=== PATIENT | female | born 1940 | race Caucasian/White ===

== ENCOUNTER 2018-10-17 19:56 | Inpatient (IN) | payer BC, MEDICAID ==
[~2018-10-17] VITALS: Ht 170.2 cm; Wt 189.6 kg
[2018-10-17 20:10] VITALS: BP_SYST 98
--- NOTE | 2018-10-17 20:11 | NUR ---
Placed in room 6. Placed on youth nutritional monitor, blood pressure machine and pulse oximeter. To gown for exam. Side rails up.
--- NOTE | 2018-10-17 20:12 | NUR ---
BHASKAR Pacheco at bedside examining patient.
--- NOTE | 2018-10-17 20:20 | NUR ---
Pt from home BIB BLS C/O progressively worsening generalized weakness. In the ED pt's blood pressure is low, blood glucose level is within normal limits. Pt is on 3 lpm of O2 at home. Pt denies any chest pain, N/V/D or any other symptoms at this time. Will continue to monitor
--- NOTE | 2018-10-17 20:25 | NUR ---
Upon face to face with he states pt was admitted to [facility] ICU on October 06 with the diagnosis of CHF, Acute Respiratory Distress, and Shortness of Breath. Pt was then placed on Outpatient observation on October 11 with additional disgnosis of Afib with RVR, foot pain/swelling and weakness but states generalized weakness has not improved which is the reason for her visit to the ER today.
[2018-10-17] MEDS ORDERED: NS 500 ML IV ONE (20:30)
[2018-10-17] MEDS ORDERED: AMIODARONE HCL 150 MG in D5W 97 ML IV ONE (21:00)
--- NOTE | 2018-10-17 21:00 | NUR ---
Pt has been repositioned due to increased back pain from laying in bed. Pillow has been placed under pt's rt side. Pt reports relief, will continue to monitor
[2018-10-17] MEDS ORDERED: MULT-1164 PO (21:01)
[2018-10-17] MEDS ORDERED: CHOL100024 PO (21:01)
[2018-10-17] MEDS ORDERED: ACET-2634 PO (21:01)
[2018-10-17] MEDS ORDERED: FURO20TA4 PO (21:01)
[2018-10-17] MEDS ORDERED: OXYB5TAB11 PO (21:01)
[2018-10-17] MEDS ORDERED: BIOT10004 PO (21:01)
[2018-10-17] MEDS ORDERED: SIMV20TA6 PO (21:01)
[2018-10-17] MEDS ORDERED: VITA-285 PO (21:01)
[2018-10-17] MEDS ORDERED: GLIP10TA11 PO (21:01)
[2018-10-17] MEDS ORDERED: RIVA20TA PO (21:01)
[2018-10-17] MEDS ORDERED: OMEP20CA10 PO (21:01)
[2018-10-17] MEDS ORDERED: PARO-41 PO (21:01)
--- NOTE | 2018-10-17 21:05 | NUR ---
# 20 gauge angiocath placed to RT Upper Arm. Use of asceptic technique. Opsite placed over site. Blood return noted. Blood for lab drawn from site. Flushed with 10 cc of normal saline. No evidence of infiltration noted. Patient tolerated well.
[2018-10-17] MEDS ORDERED: AMIODARONE HCL 150 MG/3ML VIAL ONE ×2 (21:06→21:07)
--- NOTE | 2018-10-17 21:15 | NUR ---
Pt is in uncontrolled Afib. Dr. Pacheco has prescribed Amiodorone due to her BP. Pt is tolerating medication, will continue to monitor for a change in rhythm.
[2018-10-17 21:19] LABS: BASOPHILS # (AUTO) 0.1 K/uL (0.0-0.2); BASOPHILS % (AUTO) 0.8 % (0.0-2.0); EOSINOPHILS # (AUTO) 0.2 K/uL (0.0-0.4); EOSINOPHILS % (AUTO) 1.9 % (0.0-4.0); HEMATOCRIT 39.8 % (36-48); LYMPHOCYTES # (AUTO) 2.3 K/uL (1.0-5.5); LYMPHOCYTES % (AUTO) 18.5 % (20.5-51.5); MEAN CORPUSCULAR HEMOGLOBIN 33 pg (27-31); MEAN CORPUSCULAR HGB CONC 33 % (32-36); MEAN CORPUSCULAR VOLUME 100 fL (79.0-98.0); MONOCYTES # (AUTO) 1.4 K/uL (0.0-1.0); MONOCYTES % (AUTO) 11.7 % (1.7-9.3); NEUTROPHILS # (AUTO) 8.2 K/uL (1.8-7.7); NEUTROPHILS % (AUTO) 67.1 % (40.0-70.0); PLATELET COUNT (AUTO) 226 K/uL (130-430); RED BLOOD CELL COUNT(AUTO) 3.98 MIL/uL (4.2-6.2); RED CELL DISTRIBUTION WIDTH 14.4 % (9.0-15.0); WHITE BLOOD COUNT (AUTO) 12.2 K/uL (4.8-10.8)
--- NOTE | 2018-10-17 21:25 | NUR ---
Laboratory at bedside for blood draw
--- NOTE | 2018-10-17 21:30 | NUR ---
Radiology at bedside for chest xray
[2018-10-17] MEDS ORDERED: DILTIAZEM HCL 25 MG/5 ML VIAL IVP ONE (22:00)
[2018-10-17 22:03] LABS: ANION GAP 11 (5-15); CALCIUM 8.7 mg/dL (8.4-11.0); CHLORIDE 97 mmol/L (98-107); CREATININE 5.29 mg/dL (0.55-1.30); GLUCOSE 110 mg/dL (70-99); POTASSIUM 3.5 mmol/L (3.5-5.1); SODIUM SERUM 135 mmol/L (136-145); UREA NITROGEN, BLOOD 79 mg/dL (8-21)
[2018-10-17 22:08] LABS: ALANINE AMINOTRANSFERASE 22 U/L (12-78); ALBUMIN 2.5 g/dL (3.4-4.8); ASPARTATE AMINOTRANSFERASE 20 U/L (10-37); TOTAL BILIRUBIN 0.4 mg/dL (0.0-1.0)
[2018-10-17 22:19] LABS: BILIRUBIN,URINE 1+ (NEGATIVE); BLOOD, URINE 3+ (NEGATIVE); CLARITY/URINE HAZY (CLEAR); COLOR,URINE YELLOW (YELLOW); GLUCOSE,URINE NEGATIVE (NEGATIVE); KETONES,URINE TRACE (NEGATIVE); LEUKOCYTE ESTERASE ,URINE 1+ (NEGATIVE); NITRITE, URINE NEGATIVE (NEGATIVE); PROTEIN URINE 1+ (NEGATIVE); UROBILINOGEN,URINE 0.2 (0.2-1.0)
[2018-10-17] MEDS ORDERED: PIPERACILLIN/TAZO 3.375 GM in NS 50 ML IV ONE (22:30)
[2018-10-17] MEDS ORDERED: PIPERACILLIN/TAZOBACTAM 3.375 GM/VIAL (ZOSYN) IV ONE (22:45)
--- NOTE | 2018-10-17 22:48 | NUR ---
Dr. Pachceo updating family of pt condition and admission
--- NOTE | 2018-10-17 22:51 | NUR ---
ENVIRONMENTAL COMPLIANCE ENGINEER at bedside for ABG draw
[2018-10-17] MEDS ORDERED: ACETAMINOPHEN 500 MG TABLET PO ONE (23:00)
[2018-10-17 23:04] LABS: BACTERIA,URINE FEW /HPF (None Seen); RBC,URINE 80-100 /HPF (0-3); URIC ACID CRYSTALS,URINE 0-10 /HPF (None Seen); YEAST,URINE Many /HPF (None Seen)
[2018-10-17 23:05] LABS: MUCUS,URINE None Seen /LPF (None Seen)
--- NOTE | 2018-10-17 23:05 | NUR ---
Pt has been repositioned to relieve increasing back pain and also has been medicated with 1000mg of Tylenol. Will continue to monitor.
--- NOTE | 2018-10-17 23:07 | NUR ---
Pt is being placed on Bi-Pap per Dr. Pacheco due to her low O2 saturation. O2 sat has been 89-91% on 5 liters of O2. Will continue to monitor
--- NOTE | 2018-10-17 23:17 | NUR ---
Dr. Larsen at bedside examining patient
--- NOTE | 2018-10-17 23:23 | NUR ---
Dr. Larsen is speaking with family
[2018-10-17] MEDS ORDERED: KETAMINE 30 MG/3 ML SYRINGE 30 MG in NS 100 ML IV ONE (23:30)
[2018-10-17] MEDS ORDERED: D5W 1,000 ML IV PRN (23:41)
[2018-10-17] MEDS ORDERED: KETAMINE 30 MG/3 ML SYRINGE ONE (23:43)
[2018-10-17] MEDS ORDERED: GLUCOSE 15 GM GEL (in 37.5 GM TUBE) PO PRN (23:45)
[2018-10-17] MEDS ORDERED: NACL 0.9% 2,000 ML IV ONE (23:45)
[2018-10-17] MEDS ORDERED: HYDROmorphone 1 MG INJ. 1 MG/ML AMPUL IVP PRN (23:45)
[2018-10-17] MEDS ORDERED: IPRATROPIUM BROM 0.5 MG/2.5 ML VIAL.NEB (ATROVENT) INH PRN (23:45)
[2018-10-17] MEDS ORDERED: SUCCINYLCHOLINE CHLORIDE 20 MG/ML(QUELICIN) IVP ONE (23:45)
[2018-10-17] MEDS ORDERED: KETOROLAC TROMETHAMINE 15 MG VIAL IVP PRN (23:45)
[2018-10-17] MEDS ORDERED: DEXTROSE 50% JECT 50 ML DISP.SYRIN IVP PRN (23:45)
[2018-10-17] MEDS ORDERED: *HEPARIN PER PHARMACY XX ONE (23:45)
[2018-10-17] MEDS ORDERED: ONDANSETRON HCL 4 MG/2 ML VIAL IVP PRN (23:45)
[2018-10-17] MEDS ORDERED: LORazepam 2 MG/ML VIAL IVP PRN (23:45)
[2018-10-17] MEDS ORDERED: LORazepam 2 MG/ML VIAL IM PRN (23:45)
[2018-10-17] MEDS ORDERED: ETOMIDATE 20 MG/ 10 ML VIAL (AMIDATE) IVP ONE (23:45)
[2018-10-17] MEDS ORDERED: ALBUTEROL SULFATE 0.083% 2.5 MG/3 ML VIAL.NEB INH PRN (23:45)
[2018-10-17] MEDS ORDERED: NOREPINEPHRINE BITARTRATE 4 MG in NS 246 ML IV ONE (23:45)
[2018-10-18] VITALS (35 sets, daily range): BP systolic 77–136
[2018-10-18] MEDS ORDERED: *HEPARIN PER PHARMACY XX PRN
[2018-10-18] MEDS ORDERED: HEPARIN SODIUM,PORCINE 2000 UNITS/0.4 ML BOLUS IVP PRN (00:15)
--- NOTE | 2018-10-18 00:28 | NUR ---
Patient not known to be of DNR status. Patient medicated with 20 mg of Etomidate and 100mg Succinylcholine for sedation prior to placement of ET tube. Respiratory therapy at bedside prior to placement. Size 7.5 ET tube placed by Dr. Pacheco. Cuff inflated with 10 cc air. Auscultation of breath sounds over bilateral chest wall. ET tube secured with tube wilson. O2 sats 100% pulse ox. PCXR ordered to check tube placement.
[2018-10-18] MEDS ORDERED: HEPARIN SODIUM,PORCINE 5000 UNITS/ML VIAL IV ONE (00:30)
--- NOTE | 2018-10-18 00:31 | NUR ---
Xray at bedside
--- NOTE | 2018-10-18 00:40 | NUR ---
Xray confirmed placement of ET Tube
[2018-10-18] MEDS ORDERED: MIDAZOLAM HCL 5 MG/5 ML VIAL IVP ONE (00:45)
[2018-10-18] MEDS ORDERED: ETOMIDATE 20 MG/ 10 ML VIAL (AMIDATE) IVP ONE (00:45)
[2018-10-18] MEDS ORDERED: LINEZOLID 300 ML IV ONE ×2 (00:45→10:45)
[2018-10-18] MEDS ORDERED: SUCCINYLCHOLINE CHLORIDE 20 MG/ML(QUELICIN) IVP ONE (00:45)
--- NOTE | 2018-10-18 00:53 | NUR ---
Dr. Pacheco at bedside examining patient. Propofol drip running and Versed ordered to be given
[2018-10-18] MEDS ORDERED: PROPOFOL DRIP 100 ML IV ONE (00:57)
[2018-10-18] MEDS ORDERED: VANCOMYCIN HCL 1,750 MG in NS 500 ML IV ONE (01:00)
[2018-10-18] MEDS ORDERED: MIDAZOLAM HCL 5 MG/5 ML VIAL ONE ×2 (01:04→01:34)
[2018-10-18] MEDS: PROPOFOL DRIP 100 ML IV PRN ×6 (01:07→22:01)
--- NOTE | 2018-10-18 01:10 | NUR ---
Dr. Pacheco at bedside for central line placement
--- NOTE | 2018-10-18 01:11 | NUR ---
Propofol drip increased to 10mcg/kg/min due to increased agitation during proceedure.
--- NOTE | 2018-10-18 01:16 | NUR ---
Propofol drip increased to 15mcg/kg/min due to increased movement
--- NOTE | 2018-10-18 01:30 | NUR ---
Additional 3mg of Midazolam has been ordered by Dr. Pacheco via verbal order. Administered at 0130 due to increased movement
--- NOTE | 2018-10-18 01:34 | NUR ---
Central line placed by Dr. Pacheco
--- NOTE | 2018-10-18 01:39 | NUR ---
Propofol drip increased to 20mcg/kg/min per protocol due to increased movement
--- NOTE | 2018-10-18 02:03 | NUR ---
Patient will be admitted to care of Dr. Larsen. Admitted to ICU unit. Will go to room 8. Belongings list completed. Summary report printed. Report will be given at bedside.
--- NOTE | 2018-10-18 02:14 | NUR ---
Propofol increased to 25mcg/kg/min due to increased movement.
--- NOTE | 2018-10-18 02:27 | NUR ---
Propofol increased to 30mcg/kg/min due to increased movement
--- NOTE | 2018-10-18 02:35 | NUR ---
ADMISSION NOTE Received patient from ER via gurnatasha, received report from JEFF BEE. Patient admitted with diagnosis of SEPSIS, UTI, PNA, ACUTE RENAL FAILURE, ACUTE RESPIRATORY FAILURE. PT RECEIVED IN BED WITH EYES CLOSED, SEDATED. NO S/S OF ACUTE DISTRESS NOTED. PT INTUBATED, VENT SETTINGS: AC 12, TV 600, FIO2 60%, PEEP 5. A-FIB ON MONITOR. RT IJ TLC TO SL, R HAND 22G INFUSING ABX, MALINDA 20G INFUSING DIPRIVAN DRIP @ 30 MCG/KG/MIN. HOB ELEVATED, BED IN LOWEST POSITION, CALL LIGHT IN REACH. WILL CONTINUE TO MONITOR PT.
--- NOTE | 2018-10-18 02:45 | NUR ---
Transfer to ICU via ACLS protocol. Licensed nurse present. IV present no signs or symptoms of infiltration.
--- NOTE | 2018-10-18 03:05 | NUR ---
called Dr. Roy's exchange for orders. Spoke to Valentina.
[2018-10-18] MEDS: IPRATROPIUM BROM 0.5 MG/2.5 ML VIAL.NEB (ATROVENT) INH SCH ×5 (03:20→19:00)
[2018-10-18] MEDS: ALBUTEROL SULFATE 0.083% 2.5 MG/3 ML VIAL.NEB INH SCH ×3 (03:20→07:11)
--- NOTE | 2018-10-18 03:20 | NUR ---
VENT CHANGES SETTINGS CHANGED TO AC 16 AND TV [address] QUISPE. RT AT BEDSIDE TO MAKE CHANGES. WILL CONTINUE TO MONITOR PT.
[2018-10-18] MEDS ORDERED: NOREPINEPHRINE 4 MG/4 ML VIAL IV ONE (03:22)
[2018-10-18] MEDS: D5NS 1,000 ML IV SCH ×2 (03:24→09:02)
[2018-10-18] MEDS ORDERED: FUROSEMIDE 40 MG/4 ML VIAL ONE (03:40)
[2018-10-18] MEDS: HEPARIN 25,000 UNITS in 250 ML PREMIX IV PRN (03:40)
[2018-10-18] MEDS ORDERED: FUROSEMIDE 20 MG/2 ML VIAL ONE (03:40)
[2018-10-18] MEDS ORDERED: VANCOMYCIN HCL 1000 MG/VIAL IV ONE (03:43)
[2018-10-18] MEDS ORDERED: PIPERACILLIN/TAZOBACTAM 3.375 GM/VIAL (ZOSYN) IV ONE (03:43)
[2018-10-18] MEDS: FUROSEMIDE 100 MG in D5W 90 ML IV SCH (03:46)
--- NOTE | 2018-10-18 04:30 | NUR ---
OGT OGT PLACED THIS TIME. STOMACH AUSCULTATED AND GURGLING NOISE HEARD FOR CONFIRMATION OF PLACEMENT. CLAMPED AT THIS TIME. PT TOLERATED PROCEDURE WELL.
--- NOTE | 2018-10-18 04:30 | NUR ---
CARDENAS CATH: # 16 FR Cardenas catheter with 10 cc bulb inserted with use of sterile technique. Bulb inflated with 10 cc sterile water. Immediate return of 30 cc YELLOW urine noted. Bedside drainage bag placed below level of bladder. Pt tolerated procedure WELL.
[2018-10-18] MEDS: PIPERACILLIN/TAZO 3.375/DEX-IS 50 ML IV SCH ×4 (05:39→17:42)
[2018-10-18] MEDS: INSULIN REGULAR, HUMAN 100 UNITS/ML, 10 ML VIAL (humuLIN R) SUBCUT PRN ×3 (05:41→18:00)
--- NOTE | 2018-10-18 05:50 | NUR ---
called Dr. Ellis's exchange for morning consult. Spoke to Bertin, chief airline radio operator 22.
--- NOTE | 2018-10-18 05:56 | NUR ---
called Dr. Thompson's and Dr. Alvarez's exchange for morning consult. Spoke to Valentina.
[2018-10-18] MEDS ORDERED: DILTIAZEM HCL 125 MG/25 ML VIAL IV ONE ×2 (06:06)
[2018-10-18] MEDS: DILTIAZEM HCL 125 MG in D5W 100 ML IV PRN ×2 (06:07→06:09)
[2018-10-18 06:08] LABS: BASOPHILS # (AUTO) 0.1 K/uL (0.0-0.2); BASOPHILS % (AUTO) 0.9 % (0.0-2.0); EOSINOPHILS # (AUTO) 0.3 K/uL (0.0-0.4); EOSINOPHILS % (AUTO) 2.2 % (0.0-4.0); HEMATOCRIT 35.6 % (36-48); HEMOGLOBIN 11.5 g/dL (12.0-16.0); LYMPHOCYTES # (AUTO) 1.8 K/uL (1.0-5.5); LYMPHOCYTES % (AUTO) 13.5 % (20.5-51.5); MEAN CORPUSCULAR HEMOGLOBIN 32 pg (27-31); MEAN CORPUSCULAR HGB CONC 32 % (32-36); MEAN CORPUSCULAR VOLUME 100 fL (79.0-98.0); MONOCYTES # (AUTO) 1.3 K/uL (0.0-1.0); MONOCYTES % (AUTO) 9.4 % (1.7-9.3); NEUTROPHILS # (AUTO) 9.9 K/uL (1.8-7.7); PLATELET COUNT (AUTO) 233 K/uL (130-430); RED BLOOD CELL COUNT(AUTO) 3.57 MIL/uL (4.2-6.2); RED CELL DISTRIBUTION WIDTH 14.2 % (9.0-15.0); WHITE BLOOD COUNT (AUTO) 13.4 K/uL (4.8-10.8)
--- NOTE | 2018-10-18 06:20 | NUR ---
Called Dr. Roy's exchange. Spoke to Valentina.
[2018-10-18 06:41] LABS: CHLORIDE 100 mmol/L (98-107); GLUCOSE 232 mg/dL (70-99); POTASSIUM 3.6 mmol/L (3.5-5.1); SODIUM SERUM 139 mmol/L (136-145)
--- NOTE | 2018-10-18 07:10 | NUR ---
RT NOTES Vent settings to AC 14 40% per Dr Roy's order. No adverse reactions noted. Will monitor pt.
[2018-10-18] MEDS ORDERED: AZITHROMYCIN 500 MG in NS 250 ML IV ONE (07:15)
--- NOTE | 2018-10-18 07:15 | NUR ---
Opening Note Received bedside report from Neena BEE for continuation of care. Received patient resting in bed, no signs or symptoms of acute distress noted. Bed locked in lowest position and bed alarm on.
[2018-10-18 07:20] LABS: ANION GAP 17 (5-15); CALCIUM 7.9 mg/dL (8.4-11.0); CREATININE 4.92 mg/dL (0.55-1.30); UREA NITROGEN, BLOOD 75 mg/dL (8-21)
--- NOTE | 2018-10-18 07:30 | NUR ---
ENDORSEMENT BEDSIDE REPORT GIVEN TO SONIA BEE USING SBAR APPROACH.
[2018-10-18 07:43] LABS: ALANINE AMINOTRANSFERASE 22 U/L (12-78); ASPARTATE AMINOTRANSFERASE 21 U/L (10-37); TOTAL BILIRUBIN 0.5 mg/dL (0.0-1.0)
[2018-10-18 07:44] LABS: ALBUMIN 2.2 g/dL (3.4-4.8)
[2018-10-18 07:45] LABS: PHOSPHORUS 5.3 mg/dL (2.7-4.5)
--- NOTE | 2018-10-18 08:05 | NUR ---
Dr. Young at bedside examining patient. No new orders received.
--- NOTE | 2018-10-18 08:08 | NUR ---
2D ECHO being performed at bedside. No signs or symptoms of acute distress noted. Patient tolerated well with minimal discomfort.
--- NOTE | 2018-10-18 08:52 | NUR ---
US Abdomen being performed at bedside. No signs or symptoms of acute distress noted. Patient tolerated well with minimal discomfort.
[2018-10-18] MEDS: PANTOPRAZOLE SODIUM 40 MG/VIAL (PROTONIX) IVP SCH ×2 (08:59→20:35)
[2018-10-18] MEDS: ASPIRIN 325 MG TABLET PO SCH (08:59)
--- NOTE | 2018-10-18 10:15 | NUR ---
Nutrition Update Ry Scale 12 noted. Pt admitted for sepsis, UTI. Diet: NPO BMI: 65.5 kg/m2 RD to follow per nutrition care standards.
--- NOTE | 2018-10-18 10:29 | NUR ---
Dr. Larsen in to see patient. New orders received.
--- NOTE | 2018-10-18 10:43 | NUR ---
Dr. Alvarez in to see patient. New orders received.
--- NOTE | 2018-10-18 11:15 | NUR ---
US Chest being performed at bedside. No signs or symptoms of acute distress noted.
[2018-10-18] MEDS: AMIODARONE HCL 900 MG in D5W 482 ML IV SCH (12:00)
--- NOTE | 2018-10-18 12:00 | NUR ---
Dr. Escalera at bedside examining patient and updating patient/family on plan of care. No new orders.
[2018-10-18] MEDS: FLUCONAZOLE 200 mg/ NS 100 ML IV SCH (12:51)
[2018-10-18] MEDS: LevALBUTEROL HCL 1.25 MG/0.5 ML *CONC.* VIAL.NEB (XOPENEX CONC.) INH SCH ×2 (13:26→19:00)
[2018-10-18] MEDS: LORazepam 2 MG/ML VIAL IVP PRN (14:39)
[2018-10-18] MEDS: HYDROCORTISONE SOD SUCC 100 MG/2 ML VIAL IVP SCH ×2 (15:49→21:59)
[2018-10-18] MEDS: NOREPINEPHRINE BITARTRATE 4 MG in D5W 246 ML IV PRN (17:44)
--- NOTE | 2018-10-18 18:36 | NUR ---
Patient transferred to [facility]. No signs or symptoms of acute distress noted.
--- NOTE | 2018-10-18 19:18 | NUR ---
Endorsement Endorsed bedside report to Lyndsay BEE using SBAR approach for continuation of care.
--- NOTE | 2018-10-18 19:30 | NUR ---
PM SHIFT ASSESSMENT Pt is sedated, on Diprivan drip. O2 via vent, pt tolerating current vent settings. OG tube noted, clamped. Lobo catheter in place and draining to gravity. Multiple IV's infusing, no signs of infiltration noted. Skin warm and dry. at bedside. Safety precautions in bed, call light within reach. Educated on how to use call light for assistance. Will continue to monitor.
[2018-10-18] MEDS: LINEZOLID 300 ML IV SCH (20:34)
[2018-10-19] VITALS (36 sets, daily range): BP systolic 101–164
[2018-10-19] MEDS: PIPERACILLIN/TAZO 3.375/DEX-IS 50 ML IV SCH ×5 (00:27→23:39)
[2018-10-19] MEDS: MORPHINE 2 MG/ML INJ. SYRINGE IVP PRN ×4 (00:28→17:20)
[2018-10-19] MEDS: INSULIN REGULAR, HUMAN 100 UNITS/ML, 10 ML VIAL (humuLIN R) SUBCUT PRN ×5 (00:34→23:57)
[2018-10-19] MEDS: PROPOFOL DRIP 100 ML IV PRN ×4 (00:38→12:20)
[2018-10-19] MEDS: HEPARIN 25,000 UNITS in 250 ML PREMIX IV PRN ×2 (02:53→23:41)
[2018-10-19] MEDS ORDERED: PROPOFOL DRIP 200 ML IV ONE (05:07)
[2018-10-19 05:16] LABS: HEMATOCRIT 37.3 % (36-48); HEMOGLOBIN 12.1 g/dL (12.0-16.0); MEAN CORPUSCULAR HEMOGLOBIN 32 pg (27-31); MEAN CORPUSCULAR HGB CONC 33 % (32-36); MEAN CORPUSCULAR VOLUME 100 fL (79.0-98.0); PLATELET COUNT (AUTO) 233 K/uL (130-430); RED BLOOD CELL COUNT(AUTO) 3.74 MIL/uL (4.2-6.2); RED CELL DISTRIBUTION WIDTH 14.3 % (9.0-15.0); WHITE BLOOD COUNT (AUTO) 10.8 K/uL (4.8-10.8)
[2018-10-19] MEDS: HYDROCORTISONE SOD SUCC 100 MG/2 ML VIAL IVP SCH ×3 (05:20→21:14)
[2018-10-19 05:40] LABS: ATYPICAL LYMPHOCYTES % 0 % (0-0); BAND % (MANUAL) 5 % (0-6); BASOPHILS % (MANUAL) 0 % (0-2); EOSINOPHILS % (MANUAL) 0 % (0-7); LYMPHOCYTES % (MANUAL) 8 % (20-46); METAMYELOCYTES % 1 % (0-0); MONOCYTES % (MANUAL) 9 % (0-11); MYELOCYTES % 1 % (0-0)
[2018-10-19 05:44] LABS: ALANINE AMINOTRANSFERASE 21 U/L (12-78); ALBUMIN 2.2 g/dL (3.4-4.8); ANION GAP 12 (5-15); ASPARTATE AMINOTRANSFERASE 23 U/L (10-37); CALCIUM 8.2 mg/dL (8.4-11.0); CHLORIDE 99 mmol/L (98-107); CREATININE 3.77 mg/dL (0.55-1.30); GLUCOSE 334 mg/dL (70-99); POTASSIUM 3.8 mmol/L (3.5-5.1); SODIUM SERUM 137 mmol/L (136-145); TOTAL BILIRUBIN 0.4 mg/dL (0.0-1.0); UREA NITROGEN, BLOOD 65 mg/dL (8-21)
--- NOTE | 2018-10-19 06:00 | NUR ---
Witnessed diprivan drip decreased to 20 mcg/kg/min
[2018-10-19] MEDS: HEPARIN SODIUM,PORCINE 3000 UNITS/0.6 ML BOLUS IVP PRN ×2 (06:53→23:42)
--- NOTE | 2018-10-19 06:55 | NUR ---
WITNESSED HEPARIN DRIP INCREASED TO 1300 UNITS/HR
--- NOTE | 2018-10-19 07:28 | NUR ---
ENDORSEMENT Pt care endorsed to CRISTAL Mott at bedside using nursing SBAR.
[2018-10-19] MEDS: IPRATROPIUM BROM 0.5 MG/2.5 ML VIAL.NEB (ATROVENT) INH SCH ×3 (07:30→19:37)
[2018-10-19] MEDS: LevALBUTEROL HCL 1.25 MG/0.5 ML *CONC.* VIAL.NEB (XOPENEX CONC.) INH SCH ×3 (07:30→19:36)
--- NOTE | 2018-10-19 07:50 | NUR ---
AM ASSESSMENT. PT ON PROPOFOL DRIP AT 20 MCG/KG/MIN, LEVOPHED DRIP AT 2 MCG/MIN, LASIX DRIP AT 2 MG/HR, HEPARIN DRIP AT 1300 UNIT/HR, AMIODARONE DRIP AT 0.5 MG/MIN. TIRE ADJUSTER ATRIAL FIB, HEART RATE 116 TO 120'S. MECHANICALLY INTUBATED, ORAL CARE DONE.
[2018-10-19] MEDS: NOREPINEPHRINE BITARTRATE 4 MG in D5W 246 ML IV PRN (08:14)
[2018-10-19] MEDS: ASPIRIN 325 MG TABLET PO SCH (09:00)
[2018-10-19] MEDS: PANTOPRAZOLE SODIUM 40 MG/VIAL (PROTONIX) IVP SCH ×2 (09:37→21:14)
[2018-10-19] MEDS: LINEZOLID 300 ML IV SCH ×2 (09:37→21:14)
--- NOTE | 2018-10-19 10:35 | NUR ---
. CALLED AND SPOKE TO DR GARCIA, PT;S HEART RATE IN THW 110'S TO 120'S, TO CONTINUE AMIODARONE DRIP AT 0.5 MG/MIN.
[2018-10-19] MEDS: AMIODARONE HCL 900 MG in D5W 482 ML IV SCH (10:37)
[2018-10-19] MEDS ORDERED: COMMUNICATION ORDER XX ONE (10:45)
--- NOTE | 2018-10-19 11:15 | NUR ---
RT NOTES FIO2 TO 35% PER TITRATION ORDER. NO ADVERSE REACTIONS NOTED. WILL MONITOR PT.
[2018-10-19] MEDS: FLUCONAZOLE 200 mg/ NS 100 ML IV SCH (11:22)
[2018-10-19] MEDS: LORazepam 2 MG/ML VIAL IVP PRN (14:07)
--- NOTE | 2018-10-19 14:40 | NUR ---
Dietitian Recommendations * Consider EN support within 24-48 hours or advance diet if/when medically appropriate * Consider Pivot 1.5 at 65 ml/hr (goal rate), Free Water Flush: 150 ml Q4h via OGT Provides: 2340 kcal/day, 147 gm protein/day, and 2084 ml free water/day Meets: 106% of estimated caloric needs and 104% of lower end of estimated protein needs LP, RD Please refer to Nutrition Assessment for details.
--- NOTE | 2018-10-19 15:20 | NUR ---
RT NOTES Vent settings to SIMV [address] order. Pt. appears to tolerate settings well, placed on CO2 monitor. Will cont to monitor pt. Addendum: 10/19/18 at 1551 by Jerica Mathias RT Amended: Links added.
--- NOTE | 2018-10-19 15:30 | NUR ---
HEPARIN DRIP. CHANGED RATE TO 1400 UNIT/HR, VERIFIED BY ANOTHER RN, WILL CHECK PTT AT 2130.
--- NOTE | 2018-10-19 15:55 | NUR ---
RT NOTES Vent settings back to AC 14 due to low tidal volume. Pt. does not respond to stimulants at this time.
--- NOTE | 2018-10-19 16:51 | NUR ---
WOUND EVALUATION: Late note for 1650 secondary to patient care. Wound Consult received from Dr. Young. Thank you, Dr. Young, for the consult. Patient received in a [facility] Total Care Bariatric bed with a low air-loss mattress, obtunded, with tracheostomy to ventilator. Patient is unable to turn in bed independently. Ry Score is an 11. Past Medical History: Morbid Obesity, Diabetes Mellitus, Hypertension, Depression, Hypercholesterolemia, chronic Hypoxia, Atrial Fibrillation, Congestive Heart Failure. Recent Labs: WBC 10.8, RBC 3.74, hemoglobin 12.1, hematocrit 37.3, BUN 65, creatinine 3.77, glucose 334, calcium 8.2, albumin 2.2, PTT 45.9. Microbiology: Blood culture results 2 in progress. Urine culture results in progress. Endotracheal culture results in progress. MRSA screen results in progress. Body fluid culture results in progress. Intrinsic factors that delay wound healing: Diabetes Mellitus, chronic Hypoxia, Congestive Heart Failure, Hypoalbuminemia. Extrinsic factors that delay wound healing: Immobility. Wound Assessment: 1. Left lateral abdomen: Slow healing wound, present on admission. Wound bed has 90% yellow tissue, 10% pink tissue. No odor, scant yellow purulent drainage. Periwound intact. Surrounding tissue has erythema and dry, flaky tissue. Wound measures 3.2 cm x 0.9 cm x 0.3 cm. Recommend: Cleanse wound with normal saline. Apply moisture barrier cream to sheldon-wound. Apply Therahoney gel to wound bed. Pack wound with 1/4 inch iodoform packing strip. Cover with foam dressing. Perform wound care daily, and as needed for dressing soiling or dislodgement. 2. Right lateral abdominal fold: Non-intact skin and erythema from intertrigo, present on admission. Site measures 3.2 cm x 2.0 cm. 3. Right anterior lateral abdominal fold: Non-intact skin and erythema from intertrigo, present on admission. Site measures 6.0 cm x 3.0 cm. Recommend: Cleanse involved areas with mild soap and water. Pat dry. Apply Nystatin powder to involved areas. Place Inter-Dry AG sheets, cut to size, into involved areas. Perform site care twice a day, and as needed for soiling. Change Inter-Dry AG sheets every 5 days, and as needed for soiling. 4. Anterior (central) abdomen: Dry, flaky, scaly skin, present on admission. There is also a large area of integumentary striae. Recommend cleanse involved areas with mild soap and water. Pat dry. Apply Eucerin cream to involved areas. Perform site care twice a day, and as needed for soiling. 5. Left antecubital area: Area of ecchymosis. No odor, no drainage. 6. Left upper extremity: Multiple, multiple areas of small ecchymotic spots. No odor, no drainage. Recommend: No dressings needed. Continue to monitor sites every shift. 7. Gluteal sulcus: Intermittent areas of erythematous non-intact skin and erythemous intact skin from intertrigo, present on admission. Site measures 11.0 cm x 0.3 cm. Recommend: Cleanse involved area with mild soap and water. Pat dry. Apply Nystatin powder to involved area. Place Inter-Dry AG sheet, cut to size, into involved area. Perform site care twice a day and as needed for soiling. Change Inter-Dry AG sheets every 5 days, and as needed for soiling. 8. Right buttock: Moisture associated wound, present on admission. Wound bed has 90% pink tissue, 10% red tissue. No odor, no drainage. Periwound intact. Wound measures 2.7 cm x 1.0 cm. Recommend: Cleanse wound with normal saline. Apply moisture barrier cream to sheldon-wound. Apply Therahoney gel to wound bed. Pack wound with 1/4 inch iodoform packing strip. Cover with foam dressing. Perform wound care daily, and as needed for dressing soiling or dislodgement. 9. Left posterior proximal thigh: Area of pink scar tissue, present on admission. No odor, no drainage. Recommend: No dressing needed. Continue to monitor site every shift. Contact wound care nurse if site opens or drains. 10. Posterior heel: Area of blanchable erythema with two small areas of dark discolored skin within. Site measures 1.5 cm x 1.8 cm. Recommend: Elevate, offload and flow bilateral heels with one pillow lengthwise under each extremity at all times. Do not allow heels to touch bed or other surfaces at any time. 11. Left anterior mid Goetz: Chronic wound, present on admission. Wound bed is 90% black scab, 10% yellow scab. No odor, no drainage. Periwound intact. Surrounding tissue has dry, flaky, scaly skin with general area erythema and brown discoloration. Wound measures 0.8 cm x 0.9 cm. Recommend: No dressing needed. Continue to monitor site every shift. Contact wound care nurse if site opens or drains. Also recommend: Reposition patient side to side only every 2 hours with three pillows for support (underneath trunk, pelvis, and lower extremity), and off-load pressure areas with pillows for pressure re-distribution. Offload, elevate and float bilateral heels with two pillows horizontally underneath calves). Perform skin care and monitor skin integrity Q shift. Use moisture barrier cream on buttocks and other moisture susceptible areas QID and as needed for soiling. Maintain patient on a low air-loss mattress.
--- NOTE | 2018-10-19 17:20 | NUR ---
COMFORT. MEDICATED PT WITH MORPHINE 2 MG IVP, HEART RATE IRREGULAR, FAST, AT BEDSIDE.
--- NOTE | 2018-10-19 18:10 | NUR ---
NURSING. HEART RATE IN THE 110'S, PT DROWSY, AND CALM.
--- NOTE | 2018-10-19 19:50 | NUR ---
PM Assessment Pt in bed. Sedated. A-fib on the monitor. Pt is intubated. Vent settings: AC 14, TV 500, FIO2 35%, PEEP 5. Pt saturating in mid 90s. Pt has has RT IJ, REUBEN 20g and RT Hand 22g in place. Diprivan is running @ 10mcg/kg/min, Levophed is running @ 2 mcg/min. Lasix running @ 2 mg/hr, Heparin running @ 1400u/hr, and Amiodarone running @ 0.5mg/min. Pt has OG tube in place that is clamped. Auscultated for placement. Lobo catheter in place draining yellow urine to gravity. Bed locked in lowest position, safety precautions in place, and call light in reach. Will continue to monitor.
[2018-10-19] MEDS: MINERAL OIL/PETROLATUM,WHITE 113 GM CREAM.GM. TP SCH (21:00)
[2018-10-19] MEDS: FUROSEMIDE 100 MG in D5W 90 ML IV SCH (21:45)
--- NOTE | 2018-10-19 22:25 | NUR ---
called [facility] group exchange for orders. Dr. Young performance consultant. Spoke to
--- NOTE | 2018-10-19 23:30 | NUR ---
Heparin WITNESS Witnessed CRISTAL Garcia increase Heparin drip from 1400 units/hour to 1700/hour.
[2018-10-20] VITALS (35 sets, daily range): BP systolic 91–150
--- NOTE | 2018-10-20 01:30 | NUR ---
RN Rounds Pt in bed asleep. No s/s of distress noted. Will continue to monitor.
[2018-10-20] MEDS: IPRATROPIUM BROM 0.5 MG/2.5 ML VIAL.NEB (ATROVENT) INH SCH ×4 (01:51→21:54)
[2018-10-20] MEDS: LevALBUTEROL HCL 1.25 MG/0.5 ML *CONC.* VIAL.NEB (XOPENEX CONC.) INH SCH ×4 (01:51→21:55)
--- NOTE | 2018-10-20 03:10 | NUR ---
CHG CHG Bath given and linens changed. Pt tolerated well. No s/s of distress noted. Will continue to monitor.
[2018-10-20] MEDS ORDERED: VANCOMYCIN HCL 1,750 MG in NS 500 ML IV SCH (04:00)
--- NOTE | 2018-10-20 04:50 | NUR ---
RN Rounds Pt in bed asleep. No s/s of distress or discomfort. Will continue to monitor.
[2018-10-20] MEDS: HYDROCORTISONE SOD SUCC 100 MG/2 ML VIAL IVP SCH ×2 (05:48→21:38)
[2018-10-20] MEDS: PIPERACILLIN/TAZO 3.375/DEX-IS 50 ML IV SCH ×3 (05:48→17:51)
[2018-10-20] MEDS: PROPOFOL DRIP 100 ML IV PRN ×2 (05:51→10:54)
[2018-10-20] MEDS: INSULIN REGULAR, HUMAN 100 UNITS/ML, 10 ML VIAL (humuLIN R) SUBCUT PRN ×3 (05:57→17:55)
[2018-10-20 06:50] LABS: BASOPHILS # (AUTO) 0.1 K/uL (0.0-0.2); BASOPHILS % (AUTO) 0.6 % (0.0-2.0); EOSINOPHILS % (AUTO) 0.1 % (0.0-4.0); HEMOGLOBIN 12.9 g/dL (12.0-16.0); LYMPHOCYTES # (AUTO) 0.7 K/uL (1.0-5.5); LYMPHOCYTES % (AUTO) 7.4 % (20.5-51.5); MEAN CORPUSCULAR HEMOGLOBIN 32 pg (27-31); MEAN CORPUSCULAR HGB CONC 32 % (32-36); MEAN CORPUSCULAR VOLUME 100 fL (79.0-98.0); MONOCYTES # (AUTO) 0.6 K/uL (0.0-1.0); MONOCYTES % (AUTO) 6.4 % (1.7-9.3); NEUTROPHILS # (AUTO) 8.3 K/uL (1.8-7.7); PLATELET COUNT (AUTO) 185 K/uL (130-430); RED BLOOD CELL COUNT(AUTO) 3.99 MIL/uL (4.2-6.2); RED CELL DISTRIBUTION WIDTH 14.3 % (9.0-15.0); WHITE BLOOD COUNT (AUTO) 9.7 K/uL (4.8-10.8)
[2018-10-20 06:59] LABS: ALANINE AMINOTRANSFERASE 24 U/L (12-78); ALBUMIN 2.6 g/dL (3.4-4.8); ANION GAP 13 (5-15); ASPARTATE AMINOTRANSFERASE 24 U/L (10-37); CALCIUM 8.8 mg/dL (8.4-11.0); CHLORIDE 98 mmol/L (98-107); CREATININE 3.08 mg/dL (0.55-1.30); GLUCOSE 354 mg/dL (70-99); POTASSIUM 3.8 mmol/L (3.5-5.1); SODIUM SERUM 137 mmol/L (136-145); TOTAL BILIRUBIN 0.3 mg/dL (0.0-1.0); UREA NITROGEN, BLOOD 62 mg/dL (8-21)
--- NOTE | 2018-10-20 07:20 | NUR ---
OPENING NOTE: Received SBAR report and plan of care from anneliese Garcia
--- NOTE | 2018-10-20 07:24 | NUR ---
Endorsement Gave report to oncoming RN at bedside via SBAR approach.
[2018-10-20 07:34] LABS: NEUTROPHILS % (AUTO) 85.5 % (40.0-70.0)
[2018-10-20] MEDS: ASPIRIN 325 MG TABLET PO SCH (08:29)
[2018-10-20] MEDS: PANTOPRAZOLE SODIUM 40 MG/VIAL (PROTONIX) IVP SCH ×2 (08:30→21:37)
[2018-10-20] MEDS: LINEZOLID 300 ML IV SCH ×2 (08:30→21:27)
[2018-10-20] MEDS: D5NS 1,000 ML IV SCH ×2 (08:31→14:54)
[2018-10-20] MEDS: MINERAL OIL/PETROLATUM,WHITE 113 GM CREAM.GM. TP SCH ×2 (08:57→21:39)
[2018-10-20] MEDS: HEPARIN SODIUM,PORCINE 3000 UNITS/0.6 ML BOLUS IVP PRN (09:23)
[2018-10-20] MEDS: FLUCONAZOLE 200 mg/ NS 100 ML IV SCH (10:51)
--- NOTE | 2018-10-20 11:14 | NUR ---
Crochet Beader: SYSTEM INTEGRATION ENGINEER met with who was pleasant and a good historian of his 's care. Antonio stated they did not have a good experience at [facility]. He recalled taking his to ER, she was sent home. While at home, pt. could not ambulate and soiled herself and was unable to get up for about a day. They went back to ER and was hesitant to admit her. After a day in ER, pt was admitted to [facility] as an outpatient. and daughter, Mai Salmeron want pt. to go to [facility] where daughter works in admitting. While at home pt. uses DME, bedside commode, walker, Lift wheelchair, oxygen and needs a hospital bed that was about to be delivered but was put on hold due to the pts. current admittance to [facility]. is a big source of care for pt. while at home from assisting pt. to get from commode and wiping her clean to assisting her from walking from chair to walker to wheelchair and such. Family has family support with two adult children residing in the local area ([place] ) and one daughter that just left to return back home to [place]. stated there is a wound primary care sales representative that would come to the home to care for a wound that pt. had for a year. Pt. got this wound on her abdomen as she was getting out of a car. Additionally, July, pt. was trying to get into car to make her cardiac apt. but was unable to do so. stated that was the last time she tried to get into a car. Since pt. was unable to go to her doctor's apt., PCP is Lida Kong, she had a nurse practitioner, Jaycee Altamirano come to see her at her home. expressed relief that his is here at [facility] and feels she is being well care for. Goal is to get back home. SYSTEM INTEGRATION ENGINEER will remain available as needed.
--- NOTE | 2018-10-20 15:00 | NUR ---
WOUND CARE: Wound care performed following wound care guidelines, patient tolerated well with minimal discomfort.
--- NOTE | 2018-10-20 15:30 | NUR ---
RT NOTES SIMV SETTING RECEIVED AND EXPLAINED TO PT'S . PT OPENED EYES SLOWLY WHEN TALK TO, BUT DOES NOT FOLLOW ANY OTHER COMMENDS. SOON CHANGE TO SIMV 10, PS10 SETTING, LOW TIDAL VOLUME ALARM WAS TRIGGERED. WATCHED PT FOR 1MIN ON SIMV SETTINGS. EXPLAINED TO PT'S THAT UNFORTUNATELY PT IS NOT TOLERATING SIMV SETTING AT THIS TIME. SWITCHED PT BACK ON AC 14. RN [place] MADE AWARE. WILL TRY SIMV LATER WHEN PT IS MORE ALERT.
[2018-10-20] MEDS: AMIODARONE HCL 900 MG in D5W 482 ML IV SCH (17:52)
--- NOTE | 2018-10-20 19:29 | NUR ---
CLOSING NOTE: Gave SBAR report and endorsed plan of care to night RN
--- NOTE | 2018-10-20 20:00 | NUR ---
LETHARGIC. ORALLY INTUBATED. SUCTIONED WITH SMALL AMOUNT OF PINK TINGED MUCUS OBTAINED. ORAL CARE GIVEN. OGT IN PLACE, CLAMPED. ON DIPRIVAN DRIP AT 10 MCG/KG/MIN. ON HEPARIN DRIP AT 1800 UNITS/HR. ON AMIODARONE DRIP AT 0.5 MG/MIN. RIGHT IJ TLC DRSG D/I. RIGHT UPPER ARM PIV DRSG D/I. SQUEEZES HANDS ON COMMAND. CARDENAS CATH PATENT DRAINING CLEAR YELLOW URINE TO GRAVITY. AFIB. DAUGHTER AT BEDSIDE VISITING. SOME EDUCATION GIVEN. QUESTIONS ANSWERED. CONTACT ISOLATION OBSERVED.
[2018-10-20] MEDS: HEPARIN 25,000 UNITS in 250 ML PREMIX IV PRN (20:41)
--- NOTE | 2018-10-20 22:00 | NUR ---
HS CARE. SUCTIONED.
[2018-10-21] VITALS (35 sets, daily range): BP systolic 99–156
--- NOTE | 2018-10-21 | NUR ---
SUCTIONED AGAIN. REPOSITIONED. ACCU-CHEK 223, 4 UNITS REGULAR INSULIN SQ GIVEN. ORAL CARE DONE.
[2018-10-21] MEDS: PIPERACILLIN/TAZO 3.375/DEX-IS 50 ML IV SCH ×5 (00:06→23:06)
[2018-10-21] MEDS: INSULIN REGULAR, HUMAN 100 UNITS/ML, 10 ML VIAL (humuLIN R) SUBCUT PRN ×5 (00:15→23:10)
--- NOTE | 2018-10-21 00:50 | NUR ---
PTT 123.5 SECS. HEPARIN DRIP OFF AT THIS TIME.
[2018-10-21] MEDS: IPRATROPIUM BROM 0.5 MG/2.5 ML VIAL.NEB (ATROVENT) INH SCH ×4 (02:08→19:41)
[2018-10-21] MEDS: LevALBUTEROL HCL 1.25 MG/0.5 ML *CONC.* VIAL.NEB (XOPENEX CONC.) INH SCH ×4 (02:09→19:41)
--- NOTE | 2018-10-21 02:30 | NUR ---
PTT 91.5 SECS, HEPARIN DRIP ON HOLD FOR 1 MORE HR.
[2018-10-21] MEDS: PROPOFOL DRIP 100 ML IV PRN ×2 (02:32→09:42)
--- NOTE | 2018-10-21 03:30 | NUR ---
Heparin Titration, Jazlyn Sosa RN decreased Heparin drip from 1800 units to 1500 units per Heparin protocol.
--- NOTE | 2018-10-21 03:30 | NUR ---
HEPARIN DRIP RESTARTED AT 1500 UNITS/HR, 300 UNITS LESS PER PROTOCOL.
--- NOTE | 2018-10-21 04:00 | NUR ---
SUCTIONED. ORAL CARE DONE. CO2 44.
--- NOTE | 2018-10-21 05:00 | NUR ---
CHG BATH GIVEN. CARDENAS CARE, BACK CARE, SKIN CARE RENDERED. COMPLETE LINEN CHANGE. LAKESHA WELL.
--- NOTE | 2018-10-21 06:00 | NUR ---
ACCU-CHEK 239, 4 UNITS REGULAR INSULIN SQ GIVEN. UO 1250 CC OUT. REMAINS IN GUARDED CONDITION.
[2018-10-21] MEDS: HYDROCORTISONE SOD SUCC 100 MG/2 ML VIAL IVP SCH ×3 (06:12→23:06)
[2018-10-21 06:51] LABS: BASOPHILS % (AUTO) 0.3 % (0.0-2.0); EOSINOPHILS % (AUTO) 0.5 % (0.0-4.0); HEMATOCRIT 35.5 % (36-48); HEMOGLOBIN 11.6 g/dL (12.0-16.0); LYMPHOCYTES # (AUTO) 0.8 K/uL (1.0-5.5); MEAN CORPUSCULAR HEMOGLOBIN 33 pg (27-31); MEAN CORPUSCULAR HGB CONC 33 % (32-36); MEAN CORPUSCULAR VOLUME 100 fL (79.0-98.0); MONOCYTES # (AUTO) 0.7 K/uL (0.0-1.0); MONOCYTES % (AUTO) 8.8 % (1.7-9.3); NEUTROPHILS # (AUTO) 6.8 K/uL (1.8-7.7); NEUTROPHILS % (AUTO) 80.4 % (40.0-70.0); PLATELET COUNT (AUTO) 159 K/uL (130-430); RED BLOOD CELL COUNT(AUTO) 3.56 MIL/uL (4.2-6.2); RED CELL DISTRIBUTION WIDTH 14.9 % (9.0-15.0); WHITE BLOOD COUNT (AUTO) 8.5 K/uL (4.8-10.8)
[2018-10-21 06:54] LABS: ALANINE AMINOTRANSFERASE 21 U/L (12-78); ALBUMIN 2.2 g/dL (3.4-4.8); ANION GAP 13 (5-15); ASPARTATE AMINOTRANSFERASE 24 U/L (10-37); CALCIUM 8.8 mg/dL (8.4-11.0); CHLORIDE 102 mmol/L (98-107); CREATININE 2.58 mg/dL (0.55-1.30); GLUCOSE 237 mg/dL (70-99); POTASSIUM 3.7 mmol/L (3.5-5.1); SODIUM SERUM 138 mmol/L (136-145); TOTAL BILIRUBIN 0.3 mg/dL (0.0-1.0); UREA NITROGEN, BLOOD 60 mg/dL (8-21)
--- NOTE | 2018-10-21 08:08 | NUR ---
Dr. Corona at bedside examining patient. No new orders.
--- NOTE | 2018-10-21 08:16 | NUR ---
Dr. Sibley at bedside examining patient. Per Dr. Sibley, continue Amiodarone drip. No new orders.
--- NOTE | 2018-10-21 08:41 | NUR ---
Dr. Larsen in to see patient. No new orders.
[2018-10-21] MEDS: D5NS 1,000 ML IV SCH (09:38)
[2018-10-21] MEDS: PANTOPRAZOLE SODIUM 40 MG/VIAL (PROTONIX) IVP SCH ×2 (09:38→20:13)
[2018-10-21] MEDS: LINEZOLID 300 ML IV SCH ×2 (09:38→20:13)
[2018-10-21] MEDS: MINERAL OIL/PETROLATUM,WHITE 113 GM CREAM.GM. TP SCH ×2 (09:40→20:14)
[2018-10-21] MEDS: ASPIRIN 325 MG TABLET PO SCH (09:43)
--- NOTE | 2018-10-21 09:51 | NUR ---
Dr. Alvarez in to see patient and updating Milad on patient status and plan of care. No new orders.
[2018-10-21] MEDS: FLUCONAZOLE 200 mg/ NS 100 ML IV SCH (10:55)
--- NOTE | 2018-10-21 11:03 | NUR ---
Dr. Paul in to see patient. New orders received.
--- NOTE | 2018-10-21 11:10 | NUR ---
Witnessed Heparin drip being turned off.
--- NOTE | 2018-10-21 12:40 | NUR ---
Witnessed heparin dip being restarted at 1300u/hr for PTT of 96.
[2018-10-21] MEDS: LORazepam 2 MG/ML VIAL IVP PRN (13:54)
--- NOTE | 2018-10-21 16:00 | NUR ---
Wound Care/BM Wound care performed per wound care guidelines. Patient tolerated well with minimal discomfort. Patient had large soft BM. Patient cleaned, turned, and repositioned. No signs or symptoms of acute distress noted.
[2018-10-21] MEDS: HEPARIN 25,000 UNITS in 250 ML PREMIX IV PRN (17:23)
--- NOTE | 2018-10-21 19:00 | NUR ---
Endorsement Endorsed bedside report to oncoming RN using SBAR approach for continuation of care.
--- NOTE | 2018-10-21 19:50 | NUR ---
PM Assessment Pt in bed asleep. AAOx2. Able to follow commands but lethargic. Pt A-fib on monitor. Vent settings: SIMV 10, TV 500, FIO2 35%, PEEP 5, PS 10. RT IJ and REUBEN 20g in place. Amiodarone drip running @0.5mg/min, Heparin drip running @1300u/hr, and Lasix drip running @2mg/hr. OG Tube in place running Jevity 1.2 @20ml. Minimal residual noted. Pt tolerating well. Lobo catheter in place draining yellow urine to gravity. Bilateral Wrist restraints in place. Bed locked in lowest position, safety precautions in place, and call light in reach. Will continue to monitor.
[2018-10-21] MEDS ORDERED: FUROSEMIDE 40 MG/4 ML VIAL ONE (22:04)
[2018-10-21] MEDS ORDERED: FUROSEMIDE 20 MG/2 ML VIAL ONE (22:05)
[2018-10-21] MEDS: FUROSEMIDE 100 MG in D5W 90 ML IV SCH (23:08)
[2018-10-22] VITALS (24 sets, daily range): BP systolic 75–151
--- NOTE | 2018-10-22 01:00 | NUR ---
CHG CHG bath given and linens changed. Pt tolerated well.
[2018-10-22] MEDS: IPRATROPIUM BROM 0.5 MG/2.5 ML VIAL.NEB (ATROVENT) INH SCH ×3 (01:22→14:01)
[2018-10-22] MEDS: LevALBUTEROL HCL 1.25 MG/0.5 ML *CONC.* VIAL.NEB (XOPENEX CONC.) INH SCH ×3 (01:23→14:01)
--- NOTE | 2018-10-22 01:45 | NUR ---
RN Rounds Pt in bed asleep. Arousable to voice and light stimuli. No of distress noted. Will continue to monitor.
[2018-10-22] MEDS ORDERED: AMIODARONE HCL 900 MG/18 ML VIAL IV ONE (01:47)
[2018-10-22] MEDS: AMIODARONE HCL 900 MG in D5W 482 ML IV SCH (01:48)
--- NOTE | 2018-10-22 04:45 | NUR ---
RN Rounds Pt in bed asleep. No s/s of distress noted. Pt tolerating SIMV settings well. Will continue to monitor.
[2018-10-22] MEDS: D5NS 1,000 ML IV SCH (05:15)
[2018-10-22] MEDS: PIPERACILLIN/TAZO 3.375/DEX-IS 50 ML IV SCH ×3 (05:33→17:18)
[2018-10-22] MEDS: HYDROCORTISONE SOD SUCC 100 MG/2 ML VIAL IVP SCH ×2 (05:33→13:14)
[2018-10-22] MEDS: INSULIN REGULAR, HUMAN 100 UNITS/ML, 10 ML VIAL (humuLIN R) SUBCUT PRN ×3 (05:39→17:24)
[2018-10-22 05:50] LABS: BASOPHILS # (AUTO) 0.1 K/uL (0.0-0.2); BASOPHILS % (AUTO) 1.6 % (0.0-2.0); EOSINOPHILS # (AUTO) 0.1 K/uL (0.0-0.4); EOSINOPHILS % (AUTO) 0.6 % (0.0-4.0); HEMOGLOBIN 10.3 g/dL (12.0-16.0); LYMPHOCYTES # (AUTO) 0.6 K/uL (1.0-5.5); LYMPHOCYTES % (AUTO) 6.5 % (20.5-51.5); MEAN CORPUSCULAR HEMOGLOBIN 32 pg (27-31); MEAN CORPUSCULAR HGB CONC 32 % (32-36); MEAN CORPUSCULAR VOLUME 100 fL (79.0-98.0); MONOCYTES # (AUTO) 0.6 K/uL (0.0-1.0); MONOCYTES % (AUTO) 6.7 % (1.7-9.3); NEUTROPHILS # (AUTO) 7.4 K/uL (1.8-7.7); NEUTROPHILS % (AUTO) 84.6 % (40.0-70.0); PLATELET COUNT (AUTO) 160 K/uL (130-430); RED CELL DISTRIBUTION WIDTH 14.7 % (9.0-15.0); WHITE BLOOD COUNT (AUTO) 8.8 K/uL (4.8-10.8)
[2018-10-22 06:08] LABS: ALANINE AMINOTRANSFERASE 20 U/L (12-78); ALBUMIN 2.1 g/dL (3.4-4.8); ANION GAP 9 (5-15); ASPARTATE AMINOTRANSFERASE 18 U/L (10-37); CALCIUM 8.3 mg/dL (8.4-11.0); CHLORIDE 103 mmol/L (98-107); CREATININE 2.32 mg/dL (0.55-1.30); GLUCOSE 343 mg/dL (70-99); PHOSPHORUS 3.3 mg/dL (2.7-4.5); POTASSIUM 3.3 mmol/L (3.5-5.1); SODIUM SERUM 138 mmol/L (136-145); TOTAL BILIRUBIN 0.4 mg/dL (0.0-1.0); UREA NITROGEN, BLOOD 60 mg/dL (8-21)
--- NOTE | 2018-10-22 06:47 | NUR ---
Closing Note Pt in bed asleep. Remains arousable to voice and light stimuli. A-fib on the monitor w/ HR 100-120s. Vent settings remain the same. Pt tolerating SIMV, saturating in the mid-high 90s. RT IJ and REUBEN 20g in place. No s/s of infiltration noted. Pt has Amiodarone drip running @0.5mg/min, Lasix Drip @2mg/hr, Heparin drip @1200u/hr. OG tube in place running Jevity @40cc/hr. Pt tolerating well, minimal residual noted. Lobo catheter in place draining yellow urine to gravity. Bilateral wrist restraints in place. Bed locked in lowest position, safety precautions in place, and call light in reach. Will endorse to oncoming RN.
--- NOTE | 2018-10-22 07:06 | NUR ---
Endorsement Report given to oncoming RN at bedside via SBAR approach.
--- NOTE | 2018-10-22 07:15 | NUR ---
Opening Note Received bedside report from Jose BEE for continuation of care. Received patient resting in bed, arousable to voice and touch, no signs or symptoms of acute distress noted. Bed locked in lowest position and bed alarm on.
[2018-10-22] MEDS: LINEZOLID 300 ML IV SCH (08:07)
[2018-10-22] MEDS: ASPIRIN 325 MG TABLET PO SCH (08:08)
[2018-10-22] MEDS: PANTOPRAZOLE SODIUM 40 MG/VIAL (PROTONIX) IVP SCH (08:08)
[2018-10-22] MEDS: MINERAL OIL/PETROLATUM,WHITE 113 GM CREAM.GM. TP SCH (08:08)
--- NOTE | 2018-10-22 09:39 | NUR ---
Dr. Corona in to see patient. New orders received.
[2018-10-22] MEDS: MORPHINE 2 MG/ML INJ. SYRINGE IVP PRN ×2 (09:41→14:08)
[2018-10-22] MEDS ORDERED: POTASSIUM CHLORIDE 20 MEQ/PKT PACKET PO ONE (09:45)
[2018-10-22] MEDS ORDERED: DILTIAZEM HCL 25 MG/5 ML VIAL IVP ONE ×2 (10:00→14:30)
--- NOTE | 2018-10-22 10:40 | NUR ---
vent settings to simv6 at 1037. rn aware. pt tolerating vent changes despite continuous tachycardia. rr 25 sat 98%. Addendum: 10/22/18 at 1042 by Shannon Hua RT Amended: Links added.
[2018-10-22] MEDS: FLUCONAZOLE 200 mg/ NS 100 ML IV SCH (10:43)
[2018-10-22] MEDS ORDERED: DILTIAZEM HCL 25 MG/5 ML VIAL IVP PRN (11:30)
--- NOTE | 2018-10-22 11:40 | NUR ---
Dr. Sibley at bedside examining patient. made aware of heart rate. New orders received.
--- NOTE | 2018-10-22 12:09 | NUR ---
MD Ryder ferreira, spoke to Lena
--- NOTE | 2018-10-22 12:10 | NUR ---
MD Call Back Dr. Paul called back, new orders received.
[2018-10-22] MEDS ORDERED: NOREPINEPHRINE BITARTRATE 8 MG in D5W 242 ML IV PRN (12:15)
--- NOTE | 2018-10-22 14:19 | NUR ---
Heparin Witnessed RN taper Heparin from 1200 units to 1100 units
--- NOTE | 2018-10-22 14:21 | NUR ---
Paged Paged Dr. Sibley, spoke to Mike.
--- NOTE | 2018-10-22 14:22 | NUR ---
Call Back Dr. Sibley called, spoke to primary nurse, new orders received.
[2018-10-22] MEDS ORDERED: DILTIAZEM HCL 25 MG/5 ML VIAL ONE (14:53)
--- NOTE | 2018-10-22 15:33 | NUR ---
Pagesamina ferreira, spoke to Sunshine
--- NOTE | 2018-10-22 15:49 | NUR ---
MD Call Back Dr. Sibley called back, orders received.
[2018-10-22] MEDS ORDERED: AMIODARONE HCL 150 MG in D5W 100 ML IV ONE (16:00)
--- NOTE | 2018-10-22 16:09 | NUR ---
Nutrition F/U RD reviewed pt's current EMR record including diet Hx, physician notes, nursing notes, pertinent labs/meds/procedures, care trends, and care activity. Current Diet Order: Jevity 1.2 at 20 ml/hr, increase to 60 cc/hr as tolerated, Free Water Flush: 100CC [id number] via NGT x2 days Subjective Info: Pt seen resting in bed, intubated on vent w/ OGT w/ daughter present. Evidence of pump and formula at bedside, but not infusing this afternoon. Per RN, pt had been tolerating TF well, and had BM x1 (soft consistency) today. Propofol running at 11.376 ml/hr per EMR, which provides 300 kcal/day from lipids. Pt is not yet meeting optimal nutritional needs as current TF prescription provides 1728 kcal/day, 80 gm protein/day, and 1562 ml free water/day. This meets 74% of estimated caloric needs and 57% of lower end of estimated protein needs. RD confirmed w/ smelter charger via phone call that pt has an OGT for TF. MODIFIED Estimated Energy Expenditure (kcals/day) 2350 kcal/day (PSU 2009 REE for critical illness, obesity, vent support; based on minute volume: 9.1 and temperature 36.9 degrees Celsius) Estimated Protein Required (g/day) 141-188 gm/day (1.5-2 gm/kg Adj IBW for sepsis) Estimated Fluid Required (l/day) 4.8 L/day (25 ml/kg CBW for geriatric maintenance) Problem/Etiology/Signs/Symptoms Increased nutritional needs related to critical illness and metabolic demands as evidenced by estimated nutritional requirements and no currently infusing nutrition support. *improving Expected Outcomes/Goals - Monitor appetite and PO intakes w/ goal of pt meeting at least 75% of estimated nutritional needs, labs trending WNL, normal GI function, and skin integrity/wt maintenance Dietitian Recommendations * Recommend Pivot 1.5 at 65 ml/hr (goal rate), Free Water Flush: 150 ml Q4h via OGT Provides: 2340 kcal/day, 147 gm protein/day, and 2084 ml free water/day Meets: 106% of estimated caloric needs and 104% of lower end of estimated protein needs Follow Up High Risk: F/U in 2-3 days
--- NOTE | 2018-10-22 16:24 | NUR ---
Dietitian Recommendations * Recommend Pivot 1.5 at 65 ml/hr (goal rate), Free Water Flush: 150 ml Q4h via OGT Provides: 2340 kcal/day, 147 gm protein/day, and 2084 ml free water/day Meets: 106% of estimated caloric needs and 104% of lower end of estimated protein needs LP, RD Please refer to Nutrition F/U for details.
[2018-10-22] MEDS: HEPARIN 25,000 UNITS in 250 ML PREMIX IV PRN (17:20)
--- NOTE | 2018-10-22 17:48 | NUR ---
Time of Patient was noted bradycardic, pulseless within 30 seconds. Code berta initiated. CPR initiated. Dr. Stern at bedside within 60 seconds. See code blue sheet.
--- NOTE | 2018-10-22 17:50 | NUR ---
Family notified/at bedside.
--- NOTE | 2018-10-22 18:02 | NUR ---
1742 RESPONDED TO CODE BLUE. BAGGED PT ON NRB 100%. Addendum: 10/22/18 at 1804 by Shannon Hua RT Amended: Links added.
--- NOTE | 2018-10-22 18:03 | NUR ---
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
--- NOTE | 2018-10-22 18:05 | NUR ---
[facility] [employer] Spoke to Marc Reference number [id number], ok to release body.
--- NOTE | 2018-10-22 18:07 | NUR ---
UPDATED PHYSICIANS ABOUT PATIENT EXPIRING
--- NOTE | 2018-10-22 19:18 | NUR ---
Matthew Morales Called Matthew Morales spoke to Angelica. Requested to have face sheet faxed to . 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 Mortuary notified of pt's size. Will await for updates shortly as per Angelica.
== END 2018-10-22 17:48 | disposition expired | DRG 870 ==
LOC: SED 19:56 → SIC 23:34
PROVIDERS: ADMIT Internal Medicine Hospice and Palliative Medicine; ATTEND Internal Medicine Hospice and Palliative Medicine
PROC: 5A1955Z Respiratory Ventilation, Greater than 96 Consecutive Hours (ICD-10-PCS; principal; 2018-10-17)
PROC: 0BH17EZ Insertion of Endotracheal Airway into Trachea, Via Natural or Artificial Opening (ICD-10-PCS; 2018-10-17)
PROC: 05HY33Z Insertion of Infusion Device into Upper Vein, Percutaneous Approach (ICD-10-PCS; 2018-10-17)
DX: A41.9 Sepsis, unspecified organism (principal); J96.01 Acute respiratory failure with hypoxia; J18.1 Lobar pneumonia, unspecified organism; G93.41 Metabolic encephalopathy; R65.21 Severe sepsis with septic shock; I50.33 Acute on chronic diastolic (congestive) heart failure; E66.2 Morbid (severe) obesity with alveolar hypoventilation; N17.9 Acute kidney failure, unspecified; N39.0 Urinary tract infection, site not specified; Z68.44 Body mass index [BMI] 60.0-69.9, adult; B37.2 Candidiasis of skin and nail; E11.51 Type 2 diabetes mellitus with diabetic peripheral angiopathy without gangrene; E11.65 Type 2 diabetes mellitus with hyperglycemia; E78.00 Pure hypercholesterolemia, unspecified; E78.5 Hyperlipidemia, unspecified; I11.0 Hypertensive heart disease with heart failure; I48.0 Paroxysmal atrial fibrillation; I48.2 Chronic atrial fibrillation; F32.9 Major depressive disorder, single episode, unspecified; Z16.21 Resistance to vancomycin; E11.42 Type 2 diabetes mellitus with diabetic polyneuropathy; Z88.8 Allergy status to other drugs, medicaments and biological substances; Z79.899 Other long term (current) drug therapy
CPT/HCPCS: 36415; 36600; 71045; 76604; 76700-TC; 80053; 81000-TC; 82803-TC; 82962; 83605; 83735-TC; 83880; 84100-TC; 84484; 85007; 85025; 85027; 85730-TC; 87040-TC; 87070-TC; 87075-TC; 87081; 87086; 87205-TC; 92950; 93005; 93306; 94002; 94003; 94640; 94660; 94760; 96365; 96367; 96375; 99285; 99291; 99292; C9113; J0282; J0330; J0456; J1170; J1450; J1644; J1720; J1815; J1940; J2020; J2060; J2250; J2270; J2543; J2704; J3370; J3490; J7040; J7042; J7050; J7060; J7612; J7613